=== PATIENT | female | born 1955 | race Caucasian/White ===

== ENCOUNTER 2023-12-20 10:15 | Emergency (ER) | payer BC, MEDICARE, SELFPAY ==
[2023-12-20 10:17] VITALS: BP 123/92
[2023-12-20 10:30] VITALS: BMI 24.9
[2023-12-20 10:56] LABS: % Basophils 0.6 % (0-2); % Eosinophils 0.5 % (0-6); % Immature Granulocytes 0.2 % (0-0.5); % Lymphocytes 17.5 % (20.5-51.1); % Monocytes 8.2 % (1.7-9.3); Absolute Basophils 0.1 10^3/uL (0-0.2); Absolute Lymphocytes 1.5 10^3/uL (1.2-3.4); Absolute Monocytes 0.7 10^3/uL (0.1-0.6); Absolute Neutrophils 6.4 10^3/uL (1.4-6.5); Hematocrit 44.5 % (37.0-47.0); Hemoglobin 15.1 g/dL (12.0-16.0); Mean Corp Hgb Conc. 33.9 g/dL (33.0-37.0); Mean Corpuscular Hgb 29.1 pg (27.0-31.0); Mean Corpuscular Volume 85.7 fL (81.0-99.0); Mean Platelet Volume 9.3 fL (7.4-10.4); Nucleated Red Blood Cells % 0 %; Platelet Count 318 10^3/uL (130-400); Red Blood Cell Count 5.19 10^6/uL (4.20-5.40); Red Cell Dist. Width 14.2 % (11.5-14.5); White Blood Cell Count 8.7 10^3/uL (4.8-10.8)
[2023-12-20 11:11] LABS: ALT (SGPT) 14 U/L (0-35); AST (SGOT) 25 U/L (14-36); Albumin 4.9 g/dl (3.5-5.0); Alkaline Phosphatase 80 U/L (38-126); Blood Urea Nitrogen 26 mg/dl (7-17); Calcium 10.6 mg/dl (8.4-10.2); Carbon Dioxide 19 mmol/L (22-30); Chloride 104 mmol/L (98-107); Estimated Creatinine Clearance 71 ml/min; Glucose 104 mg/dl (70-99); Potassium 4.4 mmol/L (3.5-5.1); Sodium 138 mmol/L (135-145); Total Bilirubin 1.2 mg/dl (0.2-1.3); Total Protein 8.3 g/dl (6.3-8.2); eGFR > 60.00
[2023-12-20] MEDS: NSS 1000 IV (11:13)
[2023-12-20] MEDS: ZOFRAN 4 MG IV (11:13)
--- NOTE | 2023-12-20 11:24 | ED.GENMED ---
History of Present Illness
General
Chief Complaint: Abdominal Pain
Source: patient
Exam Limitations: none
Time Seen by Provider: 12/20/23 10:32
Travel History
Have you had any contact with someone who has COVID-19?: No
Do you have any symptoms of coronavirus? Fever > 100 degrees, chills, cough, shortness of breath, sore throat, loss of taste or smell, muscle aches, or headache?: No
History of Present Illness
History of Present Illness:
68-year-old female with 3 days of nausea vomiting and some vague abdominal pain. Poor intake since Monday. No fever. Had diarrhea initially although no bowel movement in the last 3 days. Currently not nauseous. No unusual food intake or
travel history.
Past History
Past History
ED Past Medical History: Cancer (Breast)
ED Past Surgical History: Orthopedic and Other (Breast cancer. Hernia repair)
Social History
Tobacco: Non-smoker
Alcohol: None
Drug: None
Review of Systems
Review of Systems
All Other Systems: Not applicable
Constitutional: Denies fever
Respiratory: Reports no symptoms
Cardiac: Reports no symptoms
: Reports no symptoms
Phy Exam
Physical Exam
Physical Exam:
GENERAL: Alert and oriented in no apparent distress
EYE: Orbits normal.
NECK: Supple
ENT: Pharynx without erythema
CARDIAC: Regular rate and rhythm without any obvious murmurs.
LUNGS: Clear breath sounds,normal
ABDOMEN: Soft, small old hernia scar. No distention. Bowel sounds present. Mild to moderate reproducible right upper quadrant tenderness. Mild left upper quadrant and mild right lower quadrant tenderness. No rebound or guarding no mass or hernia
NEUROLOGICAL: Alert and oriented , grossly non-focal
SKIN: Warm and dry, no rash or lesion, no discoloration, skin intact.
MUSCULOSKELETAL: No edema,no deformity.Good color
PSYCH: Normal and appropriate interaction.
Course
Orders/Labs/Results
Orders:
Orders
12/20/23 10:45
CMP [Comprehensive Metabolic Panel] Urgent
Complete Blood Count/With Diff Urgent
Lipase Urgent
Comment: ADD ON
12/20/23 10:58
Add On- LAB Urgent
Tests Added?: lipase
12/20/23 10:59
Electrocardiogram (*1) Stat
Reason for Study: Abdominal Pain
EKG- Treatment ONCE
12/20/23 11:01
Troponin I Urgent
12/20/23 11:05
CT Abd/Pel (IV only)-DH only Urgent
Comment:
Reason For Exam: Diffuse abdominal pain greatest right upper quadra
IV Insert/Care/Rem.- Treatment PRN
0.9% Sodium Chloride 1000 ml [Nss] 1,000 ml IV BOLUS
Ondansetron Injectable [Zofran] 4 mg IV NOW STA
US Abdomen Limited Urgent
Comment:
Reason For Exam: Right upper quadrant pain. Evaluate gallbladder
Abnormal Lab Results
12/20/23
10:45
Absolute Monos (auto) 0.7 H 10^3/uL
(0.1-0.6)
Lymphocytes % 17.5 L %
(20.5-51.1)
Carbon Dioxide 19 L mmol/L
(22-30)
BUN 26 H mg/dl
(7-17)
Glucose 104 H mg/dl
(70-99)
Calcium 10.6 H mg/dl
(8.4-10.2)
Total Protein 8.3 H g/dl
(6.3-8.2)
12/20/23 10:45
12/20/23 10:45
Vital Signs
Initial and Last Documented VS:
Initial Vital Signs
Temp Pulse Resp BP Pulse Ox
98.6 F 104 20 123/92 97
12/20/23 10:17 12/20/23 10:17 12/20/23 10:17 12/20/23 10:17 12/20/23 10:17
Last Documented Vital Signs
Temp Pulse Resp BP Pulse Ox
98.6 F 104 20 123/92 97
12/20/23 10:17 12/20/23 10:17 12/20/23 10:17 12/20/23 10:12/20/23 10:17
MDM/Problems Addressed
Differential Diagnosis Includes:
Nausea vomiting abdominal pain mostly right upper quadrant. Gallbladder, colitis, gastroenteritis. Diverticulitis and appendicitis less likely. Workup in progress
*Radiology
Radiology exam reviewed: radiology read reviewed (No acute findings on ultrasound or CT scans. Small hemangioma)
*Pulse Oximetry
Patient hypoxic: no
*EKG
Interpreted by ED Provider?: Yes
Interpretation: normal
Comparison EKG: no comparison EKG present
Heart Rate: 74
Rate: normal
Rhythm: sinus
[place]: normal axis
Interval: normal interval
QRS Pattern: normal QRS
Ischemia: no ischemia
*Critical Care Note
Total Time (30-74mins, 75-104mins- exclusive of procedures): Not Applicable
Update Note
Update Note:
Medically stable and nontoxic. No serious issues found. Stable for discharge to follow-up
ED Attending Note
-
Portions of this chart may have been created with voice recognition software.� Occasional wrong word or��sound alike� substitutions may have occurred due to the inherent limitations of voice recognition software.
Discharge Plan
Departure
Patient Disposition: Home (Routine Discharge)
Date of Disposition: 12/20/23
Time of Disposition: 14:16
Patient with high blood pressure during this ER visit?: Yes
Discharge Problem:
Abdominal pain/vomiting
Instructions: Nausea and Vomiting, Adult (DC), Abdominal Pain, BLOOD PRESSURE
Prescriptions:
New
ondansetron 4 mg tablet,disintegrating
4 mg PO TIDPRN PRN (Reason: nausea/vomiting) Qty: 10 0RF
No Action
metaxalone [Skelaxin] 800 MG tablet
800 mg PO TID Qty: 21 0RF
Referrals:
Lynne Jean-Baptiste PA-C [Family Provider] - Follow up in 2-3 days
Activity Restrictions/Additional Instructions:
Light diet for the next 1 to 2 days
Return with increasing pain fever recurrent vomiting or symptoms not resolving in 1 to 2 days
Your prescription was sent to your pharmacy
Interventions
Interventions:
*Risk Screen - Suicide Last Done: 12/20/23 10:30
*General Assessment Last Done: 12/20/23 10:30
*Neglect/Abuse Screening Last Done: 12/20/23 10:30
ED- Fall Risk Assessment Last Done: 12/20/23 10:30
*ED COVID-19 Vaccine History Last Done: 12/20/23 10:17
UP-Pwpunr-Yuwvywsaau Assessment Last Done: 12/20/23 10:30
Discharge Date and Time
Print Language: UGANDAN
[2023-12-20 11:25] LABS: Lipase 126 U/L (23-300)
[2023-12-20 11:31] LABS: Troponin I < 0.012 ng/ml
[2023-12-20 14:27] VITALS: BP 120/90
== END 2023-12-20 14:30 | disposition home or self-care (01) ==
LOC: EMR 10:15
PROVIDERS: EMERGENCY PHYSICIAN Emergency Medicine; FAMILY PHYSICIAN Physician Assistant Medical
DX: R10.9 Unspecified abdominal pain (principal); R11.2 Nausea with vomiting, unspecified; Z85.3 Personal history of malignant neoplasm of breast
CPT/HCPCS: 99284; 74177; 76705; 80053; 83690; 84484; 85025; 93005; Q9967